=== PATIENT | male | born 1990 | race Two or more races ===

== ENCOUNTER 2018-09-25 16:36 | Emergency (ER) | payer OTHER ==
[~2018-09-25] VITALS: Ht 177.8 cm; Wt 88.5 kg
[2018-09-25] MEDS ORDERED: VANCOMYCIN PER PHARMACY MC ONE (18:00)
[2018-09-25] MEDS ORDERED: MORPHINE SULFATE 4 MG/ML VIAL. IV/SQ PRN (18:00)
[2018-09-25] MEDS ORDERED: VANCOMYCIN 2 GM in IV NORMAL SALINE 500ML BAG 500 ML IV ONE (18:15)
[2018-09-25] MEDS ORDERED: PIPERACILLIN/TAZOBACTAM 4.5 GM in IV NORMAL SALINE 100ML 100 ML IV ONE (18:15)
[2018-09-25] MEDS ORDERED: DIPHTH,PERTUSS(ACELL),TET TOX 0.5 ML DISP.SYRIN. VAX IM ONE (18:30)
[2018-09-25 18:39] LABS: BASO # 0.1 x10^3/uL (0.0-0.2); BASO % 1 % (0-3); EOS % 0 % (0-3); HEMATOCRIT 42.9 % (39.0-53.0); HEMOGLOBIN 14.6 g/dL (13.0-17.5); LYMPH # 1.9 x10^3/uL (1.0-4.8); LYMPH % 18 % (24-48); MEAN CORPUSCULAR HEMOGLOBIN 28 pg (25-35); MEAN CORPUSCULAR HGB CONC 34 g/dL (31-37); MEAN CORPUSCULAR VOLUME 81 fL (79-100); MONO # 0.7 x10^3/uL (0.0-1.1); MONO % 7 % (0-9); NEUT # 8.2 x10^3uL (1.8-7.7); NEUT % 75 % (31-73); PLATELET COUNT 315 x10^3/uL (140-400); RED BLOOD COUNT 5.31 x10^6/uL (4.30-5.70); RED CELL DISTRIBUTION WIDTH 12.5 % (11.5-14.5)
[2018-09-25] MEDS: IV NORMAL SALINE 1000ML BAG 1,000 ML IV SCH ×2 (18:42→19:19)
[2018-09-25 18:48] LABS: CALCIUM 9.2 mg/dL (8.5-10.1); CREATININE 0.8 mg/dL (0.7-1.3); GFR 113.5; POTASSIUM 3.9 mmol/L (3.5-5.1)
[2018-09-25 18:54] LABS: ALBUMIN 3.4 g/dL (3.4-5.0); ALBUMIN/GLOBULIN RATIO 0.8 (1.0-1.7); TOTAL BILIRUBIN 0.4 mg/dL (0.2-1.0); TOTAL PROTEIN 7.6 g/dL (6.4-8.2)
[2018-09-25] MEDS ORDERED: INSULIN REGULAR 100 UNIT/ML 3ML VIAL. IV ONE (19:30)
--- NOTE | 2018-09-25 20:03 | RAD ---
Three-view right foot AP lateral oblique HISTORY: Cellulitis from puncture wound AP lateral oblique views the visualized osseous structures appear normal. IMPRESSION: No acute findings. Electronically signed by: Vineet Lara III, MD (09/25/2018 8:00 PM) [facility]
[2018-09-25] MEDS ORDERED: SULF1TAB23 PO (20:32)
--- NOTE | 2018-09-25 20:32 | PHYS DOC ---
Past Medical History Past Medical History: Diabetes-Type II (ANTONY BUSTAMANTE APRN) Alcohol Use: Occasionally Drug Use: None (ANTONY BUSTAMANTE APRN) Adult General Chief Complaint Chief Complaint: PUNCTURE WOUND HPI HPI Patient is a 28 year old male with history of diabetes type 2 who presents to the ED today complaining of infection to the right foot, patient states on Monday last week he stepped on a nail with shoes on, he states the nail went through the foot. He was seen at the local clinic, was started on penicillin. Patient states today he went for follow-up and he had redness on top of the foot and was sent to the ED to be evaluated. Patient denies any fever. Bandmill Operator line was used for [place]. (ANTONY BUSTAMANTE APRN) Review of Systems Review of Systems Constitutional: Denies fever or chills [] Eyes: Denies change in visual acuity, redness, or eye pain [] HENT: Denies nasal congestion or sore throat [] Respiratory: Denies cough or shortness of breath [] Cardiovascular: No additional information not addressed in HPI [] GI: Denies abdominal pain, nausea, vomiting, bloody stools or diarrhea [] : Denies dysuria or hematuria [] Musculoskeletal: Denies back pain or joint pain [] Integument: Right foot infection Neurologic: Denies headache, focal weakness or sensory changes [] All other systems were reviewed and found to be within normal limits, except as documented in this note. (ANTONY BUSTAMANTE APRN) Current Medications Current Medications Current Medications Medications (Trade) Dose Ordered Sig/Linden Start Time Stop Time Status Last Admin Dose Admin Diphtheria/ Tetanus/Acell Pertussis (Boostrix) 0.5 ml ONCE ONCE 09/25/18 18:30 09/25/18 18:31 DC 09/25/18 18:56 0.5 ML Insulin Human Regular (HumuLIN R VIAL) 5 unit 1X ONCE 09/25/18 19:30 09/25/18 19:31 DC 09/25/18 19:44 5 UNIT Morphine Sulfate (Morphine Sulfate) 4 mg PRN Q15MIN PRN 09/25/18 18:00 09/25/18 21:22 DC Piperacillin Sod/ Tazobactam Sod 4.5 gm/Sodium Chloride 100 ml @ 200 mls/hr 1X ONCE 09/25/18 18:15 09/25/18 18:44 DC 09/25/18 18:37 200 MLS/HR Sodium Chloride 1,000 ml @ 2,640 mls/hr Q23M 09/25/18 17:59 09/25/18 18:59 DC 09/25/18 19:19 2,640 MLS/HR Vancomycin HCl (Vanco Per Pharmacy) 1 each 1X ONCE 09/25/18 18:00 09/25/18 18:01 UNV Vancomycin HCl 2 gm/Sodium Chloride 500 ml @ 250 mls/hr 1X ONCE 09/25/18 18:15 09/25/18 20:14 DC 09/25/18 19:19 250 MLS/HR (KANDACE RUVALCABA MD) Allergies Allergies Allergies Coded Allergies Type Severity Reaction Last Updated Verified No Known Drug Allergies 09/25/18 No (KANDACE RUVALCABA MD) Physical Exam Physical Exam Constitutional: Well developed, well nourished, no acute distress, non-toxic appearance. [] HENT: Normocephalic, atraumatic, bilateral external ears normal, oropharynx moist, no oral exudates, nose normal. [] Eyes: PERRLA, EOMI, conjunctiva normal, no discharge. [] Neck: Normal range of motion, no tenderness, supple, no stridor. [] Cardiovascular:Heart rate regular rhythm, no murmur [] Lungs & Thorax: Bilateral breath sounds clear to auscultation [] Abdomen: Bowel sounds normal, soft, no tenderness, no masses, no pulsatile masses. [] Skin: No puncture wound noted on the bottom of the foot. There is trace cellulitis on top of the foot. There is warmth over the area. Full range of motion to the right foot. +2 right pedal pulse. Cap refill less than 2 seconds the right toes. Back: No tenderness, no CVA tenderness. [] Extremities: No tenderness, no cyanosis, no clubbing, ROM intact, no edema. [] Neurologic: Alert and oriented X 3, normal motor function, normal sensory function, no focal deficits noted. [] Psychologic: Affect normal, judgement normal, mood normal. [] (ANTONY BUSTAMANTE APRN) Current Patient Data Vital Signs Vital Signs Date Time Temp Pulse Resp B/P (MAP) Pulse Ox O2 Delivery O2 Flow Rate FiO2 09/25/18 20:55 102 18 151/85 (107) 100 Room Air 09/25/18 17:30 98.8 98.8 (KANDACE RUVALCABA MD) Lab Values Laboratory Tests Test 09/25/18 18:27 09/25/18 20:26 White Blood Count 11.0 x10^3/uL (4.0-11.0) Red Blood Count 5.31 x10^6/uL (4.30-5.70) Hemoglobin 14.6 g/dL (13.0-17.5) Hematocrit 42.9 % (39.0-53.0) Mean Corpuscular Volume 81 fL (79-100) Mean Corpuscular Hemoglobin 28 pg (25-35) Mean Corpuscular Hemoglobin Concent 34 g/dL (31-37) Red Cell Distribution Width 12.5 % (11.5-14.5) Platelet Count 315 x10^3/uL (140-400) Neutrophils (%) (Auto) 75 % (31-73) H Lymphocytes (%) (Auto) 18 % (24-48) L Monocytes (%) (Auto) 7 % (0-9) Eosinophils (%) (Auto) 0 % (0-3) Basophils (%) (Auto) 1 % (0-3) Neutrophils # (Auto) 8.2 x10^3uL (1.8-7.7) H Lymphocytes # (Auto) 1.9 x10^3/uL (1.0-4.8) Monocytes # (Auto) 0.7 x10^3/uL (0.0-1.1) Eosinophils # (Auto) 0.0 x10^3/uL (0.0-0.7) Basophils # (Auto) 0.1 x10^3/uL (0.0-0.2) Sodium Level 141 mmol/L (136-145) Potassium Level 3.9 mmol/L (3.5-5.1) Chloride Level 103 mmol/L (98-107) Carbon Dioxide Level 29 mmol/L (21-32) Anion Gap 9 (6-14) Blood Urea Nitrogen 17 mg/dL (8-26) Creatinine 0.8 mg/dL (0.7-1.3) Estimated GFR (Cockcroft-Gault) 113.5 BUN/Creatinine Ratio 21 (6-20) H Glucose Level 293 mg/dL (70-99) H Lactic Acid Level 1.4 mmol/L (0.4-2.0) Calcium Level 9.2 mg/dL (8.5-10.1) Total Bilirubin 0.4 mg/dL (0.2-1.0) Aspartate Amino Transferase (AST) 9 U/L (15-37) L Alanine Aminotransferase (ALT) 16 U/L (16-63) Alkaline Phosphatase 98 U/L (46-116) Total Protein 7.6 g/dL (6.4-8.2) Albumin 3.4 g/dL (3.4-5.0) Albumin/Globulin Ratio 0.8 (1.0-1.7) L Procalcitonin < 0.10 ng/mL (0.00-0.10) Glucose (Fingerstick) 74 mg/dL (70-99) Laboratory Tests 09/25/18 18:27 Laboratory Tests 09/25/18 18:27 (KANDACE RUVALCABA MD) EKG EKG [] (ANTONY BUSTAMANTE APRN) Radiology/Procedures Radiology/Procedures [] (ANTONY BUSTAMANTE APRN) Course & Med Decision Making Course & Med Decision Making Pertinent Labs and Imaging studies reviewed. (See chart for details) This is a 28-year-old female patient presenting to the ED today with a right foot cellulitis, patient stepped on a nail on Monday, was started on penicillin, went for recheck and was informed to come to the ED because of redness on top of the foot. Right foot x-rays interpreted by Dr. Ruvalcaba are negative for any acute findings. CBC with a normal WBC, CMP with blood glucose 293, anion gap is normal, lactic is normal. Patient was started on the sepsis protocol arrival to the ED. He did receive Zosyn and vancomycin on arrival. He is currently on what sounds like penicillin oral cephalexin. We will add Bactrim to his treatment regimen. He was discharged to home. He has a clinic he follows up with. Requested he follows up in the course of this week. He is afebrile. Tetanus was updated. (ANTONY BUSTAMANTE APRN) Course & Med Decision Making Staff Physician Addendum: I was working in the ER during the course of this patient's visit. I was available for consultation as needed, but I was not directly involved in the care of this patient. (KANDACE RUVALCABA MD) Dragon Disclaimer Dragon Disclaimer This electronic medical record was generated, in whole or in part, using a voice recognition dictation system. (ANTONY BUSTAMANTE APRN) Departure Departure Impression: Primary Impression: Puncture wound of foot, right Additional Impressions: Cellulitis of foot, right Hyperglycemia Disposition: HOME, SELF-CARE Condition: STABLE Referrals: NO PCP (PCP) follow up with the clinic this week Patient Instructions: Cellulitis, [id number], Diabetes and Exercise- SportsMed, Diabetes and Foot Care Additional Instructions: You were seen for foot infection, continue taking penicillin, we put you on Bactrim, ensure you complete it. Follow-up with the clinic in the course of this week. Also ensure you are taking your diabetes medication. Scripts Sulfamethoxazole/Trimethoprim (BACTRIM 400-80 MG TABLET) 1 Each Tablet 1 TAB PO BID, #20 TAB Prov: ANTONY BUSTAMANTE APRN 09/25/18 Problem Qualifiers Primary Impression: Puncture wound of foot, right Encounter type: initial encounter Qualified Codes: S91.331A - Puncture wound without foreign body, right foot, initial encounter ANTONY BUSTAMANTE APRN Sep 25, 2018 20:32 KANDACE RUVALCABA MD Sep 26, 2018 05:44
[2018-09-25 20:55] VITALS: BP 151/85
== END 2018-09-25 21:15 | disposition home or self-care (01) ==
LOC: ER 16:36
DX: S91.331A Puncture wound without foreign body, right foot, initial encounter (principal); L03.115 Cellulitis of right lower limb; E11.649 Type 2 diabetes mellitus with hypoglycemia without coma; Z79.4 Long term (current) use of insulin; W22.8XXA Striking against or struck by other objects, initial encounter; Y93.89 Activity, other specified; Y92.89 Other specified places as the place of occurrence of the external cause; Y99.8 Other external cause status
CPT/HCPCS: 36415; 73630; 80053; 82962; 83605; 84145; 85025; 87040; 90471; 90715; 96365; 96366; 96367; 96375; 99285; J1815; J2543; J3370; J7030; J7040